=== PATIENT | male | born 1955 | race African-American/Black ===

== ENCOUNTER 2018-06-01 07:53 | Emergency (ER) | payer OTHER ==
[~2018-06-01] VITALS: Ht 180.3 cm; Wt 123.7 kg
[2018-06-01 08:36] LABS: BASOPHIL (%) 0.5 % (0-1); EOSINOPHIL (%) 0 % (0-5); HEMATOCRIT 41.3 % (38.0-50.0); IMMATURE GRANULOCYTE (%) 0.5 % (0.0-0.7); LYMPHOCYTE (%) 18.1 % (15-42); MCH 25.9 PG (29.0-34.0); MCHC 33.9 G/DL (30.0-36.0); MCV 76.5 FL (86-99); MONOCYTE (%) 5.7 % (3-12); MONOCYTE COUNT 0.3 K/uL (0-0.8); NEUTROPHIL (%) 75.2 % (45-76); NEUTROPHIL COUNT 4.1 K/uL (1.8-6.4); PLATELET COUNT 188 K/uL (156-360); RBC DIS.WIDTH-CV 14.1 % (11.8-14.6); RBC DIS.WIDTH-SD 38.6 % (39-53); WHITE BLOOD COUNT 5.5 K/uL (4.1-10.2)
[2018-06-01 08:41] LABS: INTER. NORMALIZED RATIO 1.1
[2018-06-01 08:44] LABS: PTT 31.3 SEC (25-37)
[2018-06-01 08:54] LABS: ALBUMIN 4.1 g/dL (3.2-4.8); CHLORIDE 110 mEq/L (99-109); POTASSIUM 3.8 mEq/L (3.7-5.4); SODIUM 142 mEq/L (136-147)
[2018-06-01 08:56] LABS: GLUCOSE 110 mg/dL (70-99); TOTAL PROTEIN 6.9 g/dL (6.4-8.3)
[2018-06-01 08:57] LABS: TROP-I INTERPRETATION NEGATIVE; TROPONIN-I < 0.01 ng/mL (0.0-0.30)
[2018-06-01 08:58] LABS: TOTAL BILIRUBIN 0.3 mg/dL (0.0-1.0)
[2018-06-01 08:59] LABS: SERUM ETHYL ALCOHOL < 10 mg/dL
[2018-06-01 09:00] LABS: CREATININE 1.4 mg/dL (0.6-1.3)
[2018-06-01 09:01] LABS: ALKALINE PHOSPHATASE 56 IU/L (3-129); AST (GOT) 34 IU/L (2-34)
[2018-06-01 09:02] LABS: DIRECT BILIRUBIN 0.2 mg/dL (0.0-0.3); UREA NITROGEN (BUN) 14 mg/dL (9-23)
[2018-06-01 09:03] LABS: GFR ESTIMATE (CALCULATED) 55 mL/min/ (58.99-99999); SALICYLATE < 5.0 MG/DL (15-30)
[2018-06-01 09:04] LABS: ACETAMINOPHEN (TYLENOL) < 10 mcg/mL (10-30); ALT (GPT) 62 IU/L (3-49)
[2018-06-01 10:36] LABS: AMPHETAMINE NEGATIVE (500 ng/mL); APPEARANCE SL.HAZY ((CLEAR)); BARBITURATES NEGATIVE (200 ng/mL); BENZODIAZEPINES NEGATIVE (150 ng/mL); BILIRUBIN NEGATIVE; BLOOD NEGATIVE; BUPRENORPHINE NEGATIVE (10 ng/mL); COCAINE PRESUMPTIVE POSITIVE (150 ng/mL); COLOR YELLOW ((YELLOW)); GLUCOSE (STRIP) NEGATIVE; KETONES NEGATIVE; LEUKOCYTES TRACE; METHADONE NEGATIVE (200 ng/mL); METHAMPHETAMINE NEGATIVE (500 ng/mL); NITRITE NEGATIVE; OPIATES (MORPHINE) NEGATIVE (100 ng/mL); OXYCODONE NEGATIVE (100 ng/mL); PHENCYCLIDINE NEGATIVE (25 ng/mL); PROPOXYPHENE NEGATIVE (300 ng/mL); PROTEIN (STRIP) NEGATIVE; SPECIFIC GRAVITY 1.021 (1.000-1.030); THC CANNABINOIDS PRESUMPTIVE POSITIVE (50 ng/mL); TRICYCLIC ANTIDEPRESSANTS NEGATIVE (300 ng/mL); UROBILINOGEN 0.2 MG/DL (0.2-1.0)
[2018-06-01 10:50] LABS: BACTERIA RARE /HPF; EPITHELIAL CELLS RARE /HPF; MUCUS 1+ /LPF; RED BLOOD CELLS 0-5 /HPF (0-5); UCUL ADDED? NO; WHITE BLOOD CELLS 0-5 /HPF (0-5)
[2018-06-01 13:36] VITALS: BP 163/95
== END 2018-06-01 13:40 | disposition home or self-care (01) ==
LOC: EME 07:53
PROVIDERS: Emergency Medicine
DX: F43.20 Adjustment disorder, unspecified (principal); F14.10 Cocaine abuse, uncomplicated; F12.10 Cannabis abuse, uncomplicated; F32.9 Major depressive disorder, single episode, unspecified; R10.10 Upper abdominal pain, unspecified; R19.7 Diarrhea, unspecified; K92.1 Melena; R00.0 Tachycardia, unspecified; F17.200 Nicotine dependence, unspecified, uncomplicated
CPT/HCPCS: 80048; 80076; 81003; 83605; 83880; 84484; 84999; 85025; 85610; 85730; 90839; 93005; 99281; 99285; G0480; J7030